=== PATIENT | female | born 1960 | race Caucasian/White ===

== ENCOUNTER → 2020-04-17 | Outpatient (CLI) | payer MEDICARE, OTHER ==
[~2020-04-17] MED LIST: ALLOPURINOL100 MG PO; ASPIRIN EC81 MG PO; ATENOLOL50 MG PO; BENTYL 20MG TAB20 MG PO; COLACE 100MG C100 MG PO; CRESTOR5 MG PO; FEXOFENADINE H180 MG PO; FLONASE 0.05% N16 GM; FLUTICASONE SPRAY; GABAPENTIN300 MG PO; HYDROCODON-ACE1 EAC4 PO; METFORMIN HCL500 MG PO; MONTELUKAST SOD10 MG PO; NORCO 7.5-3251 EACH PO; OMNICEF 300 MG300 MG PO; POLYETHYLENE GL17 GM PO; PREVACID PO; RANITIDINE HCL300 MG PO; ROPINIROLE HCL2 MG PO; TIZANIDINE HCL4 MG PO; VENTOLIN HFA 66.7 GM INH; ZOFRAN4 MG PO; [UNRECOGNIZED DRUG - OTHER] PO
== END ==
LOC: MAMO 11:18
DX: Z12.31 Encounter for screening mammogram for malignant neoplasm of breast (principal); Z80.3 Family history of malignant neoplasm of breast
CPT/HCPCS: 77063; 77067

== ENCOUNTER → 2020-06-18 | Outpatient (CLI) | payer MEDICARE, OTHER | LOC: KOH-I 14:00 | DX: N17.9 Acute kidney failure, unspecified (principal); N28.89 Other specified disorders of kidney and ureter; K76.0 Fatty (change of) liver, not elsewhere classified | CPT/HCPCS: 76775 ==

== ENCOUNTER 2020-07-31 15:21 | Emergency (ER) | payer MEDICARE, OTHER ==
[~2020-07-31 15:21] MED LIST changes: -HYDROCODON-ACE1 EAC4 PO
[2020-07-31] MEDS ORDERED: HYDROCODON-ACE1 EAC4 PO (19:59)
== END 2020-07-31 20:20 | disposition home or self-care (01) ==
LOC: ER1 15:21
DX: S89.92XA Unspecified injury of left lower leg, initial encounter (principal); E11.9 Type 2 diabetes mellitus without complications; I10 Essential (primary) hypertension; X50.1XXA Overexertion from prolonged static or awkward postures, initial encounter
CPT/HCPCS: 73564; 99283

== ENCOUNTER → 2020-08-12 | Outpatient (CLI) | payer MEDICARE, OTHER ==
[~2020-08-12] MED LIST changes: +HYDROCODON-ACE1 EAC4 PO
== END ==
LOC: KOH-I 11:15
DX: S83.242A Other tear of medial meniscus, current injury, left knee, initial encounter (principal)
CPT/HCPCS: 73721

== ENCOUNTER 2020-08-29 19:01 | Emergency (ER) | payer MEDICARE, OTHER ==
[2020-08-29 20:50] LABS: HEMOGLOBIN 15.2 gm/dl (12.3-15.3); RED BLOOD COUNT 5.25 M/UL (4.00-5.10); WHITE BLOOD COUNT 13.2 K/UL (4.5-11.0)
[2020-08-29] MEDS ORDERED: OMNICEF 300 MG300 MG PO (23:49)
[2020-08-29] MEDS ORDERED: HYDROCODON-ACE1 EAC4 PO (23:52)
== END 2020-08-30 00:18 | disposition home or self-care (01) ==
LOC: ER1 19:01
PROVIDERS: Physician Assistant Medical
DX: R10.9 Unspecified abdominal pain (principal); R31.9 Hematuria, unspecified; R11.2 Nausea with vomiting, unspecified; E11.9 Type 2 diabetes mellitus without complications; I10 Essential (primary) hypertension
CPT/HCPCS: 80053; 81001; 85025; 96374; 96375; 99284; J0696; J1885; J2270; J2405; Q9967

== ENCOUNTER → 2021-02-17 | Outpatient (CLI) | payer MEDICARE, OTHER | LOC: KOH-I 16:16 | DX: M25.561 Pain in right knee (principal); M17.11 Unilateral primary osteoarthritis, right knee | CPT/HCPCS: 73562 ==

== ENCOUNTER → 2021-09-24 | Outpatient (CLI) | payer MEDICARE, OTHER | LOC: EXRD 09:58 | DX: Z13.6 Encounter for screening for cardiovascular disorders (principal); Z82.49 Family history of ischemic heart disease and other diseases of the circulatory system | CPT/HCPCS: 76706 ==

== ENCOUNTER → 2021-10-16 | Outpatient (CLI) | payer MEDICARE, OTHER | LOC: US 13:30 | DX: R07.89 Other chest pain (principal); R22.2 Localized swelling, mass and lump, trunk | CPT/HCPCS: 76604 ==

== ENCOUNTER → 2021-10-22 | Outpatient (CLI) | payer MEDICARE, OTHER | LOC: CT 15:08 | DX: R22.2 Localized swelling, mass and lump, trunk (principal); I10 Essential (primary) hypertension | CPT/HCPCS: 36415; 71260; 82565; 84520; Q9967 ==